=== PATIENT | male | born 1960 | race Caucasian/White ===

== ENCOUNTER 2017-07-08 12:56 | Emergency (ER) | payer MEDICARE ==
[~2017-07-08] VITALS: Ht 188 cm; Wt 104.3 kg
[~2017-07-08 12:56] MED LIST: ALPR1TAB2 PO; AMIT100T PO; ATEN50TA PO; CARI350T PO; RIVA20TA2 PO; SIMV80TA PO
[2017-07-08 13:05] VITALS: BP 128/77
[2017-07-08] MEDS ORDERED: HYDR-2758 PO (13:59)
[2017-07-08] MEDS ORDERED: HYDROmorphone 2 MG/ML VIAL IM ONE ×3 (14:00→16:30)
--- NOTE | 2017-07-08 14:00 | PHYS DOC ---
Past Medical History Past Medical History: CVA, DVT, High Cholesterol, Hypertension Past Surgical History: Pacemaker, Tonsillectomy Additional Information: 0.5 PPD Alcohol Use: Occasionally Drug Use: Marijuana Adult General Chief Complaint Chief Complaint: LOWER EXT PAIN HPI HPI 56-year-old male presenting to the emergency department today with left leg pain. The pain in his leg is sharp moderate intermittent and worse with walking. He is unable to identify whether his leg is more in his foot and ankle knee or more proximally. He is a very poor ability to communicate where his pain is. When after further questioning we were able to identify that his hip does not hurt. He does have a history of DVT. He doesn't remember having any recent trauma. Review of systems is negative for chest pain shortness of breath abdominal pain nausea vomiting fevers or chills. All other review of systems is negative unless otherwise noted in history of present illness. ED course: 56-year-old male presenting to the emergency department today with left leg pain. X-rays and ultrasound obtained. X-rays unremarkable. Ultrasound shows deep vein thrombosis. I discussed the case with our vascular surgeon Dr. Tirado who recommended outpatient oral anticoagulation is a reasonable therapy. Vital signs unremarkable. The patient was provided intramuscular opioid medications for pain control here. On reexamination he was feeling much better. He was able to ambulate without difficulty in the emergency department. We arranged for him to have a ride home. He was then discharged home in stable condition. Follow up with PCP. Patient will need outpatient workup for possible underlying coagulopathy. Patient's primary care physician Dr. Mathews has an appointment with the patient tomorrow. The patient was then discharged home in stable condition to follow up with their primary care physician over the next 2- 3 days. They were to return if their symptoms worsened or if they were concerned for any reason. [id number] discharge instructions and return precautions were given. Patient's questions were answered to their satisfaction. Patient is comfortable plan. Review of Systems Review of Systems SEE ABOVE. Current Medications Current Medications Current Medications Medications (Trade) Dose Ordered Sig/Raoul Start Time Stop Time Status Last Admin Dose Admin Hydromorphone HCl (Dilaudid) 0.5 mg 1X ONCE 07/08/17 15:00 07/08/17 15:01 DC 07/08/17 14:56 0.5 MG Allergies Allergies Allergies Coded Allergies Type Severity Reaction Last Updated Verified acetaminophen Allergy Intermediate 4/30/14 Yes codeine Allergy Intermediate 03/18/14 Yes oxycodone HCl Allergy Intermediate 03/18/14 Yes propoxyphene napsylate Allergy Intermediate 03/18/14 Yes Physical Exam Physical Exam SEE ABOVE Constitutional: Well developed, well nourished, no acute distress, non-toxic appearance. [] HENT: Normocephalic, atraumatic, bilateral external ears normal, oropharynx moist, no oral exudates, nose normal. [] Eyes: PERRLA, EOMI, conjunctiva normal, no discharge. [] Neck: Normal range of motion, no tenderness, supple, no stridor. Cardiovascular:Heart rate regular rhythm, no murmur Lungs & Thorax: Bilateral breath sounds clear to auscultation [] Abdomen: Bowel sounds normal, soft, no tenderness, no masses, no pulsatile masses. [] Skin: Warm, dry, no erythema, no rash. Back: No tenderness, no CVA tenderness. [] Extremities: The patient's left lower extremity is normal in appearance. 2 second cap refill with palpable pulses bilaterally. Mild tenderness in the ankle and knee with mild pain with passive range of motion. Stable ankle and knee exam. Patient does not have specific tenderness anywhere on the examination. He reports generalized tenderness. No edema present. No clinical evidence of DVT. No traumatic injury evident. No abrasions lacerations or ecchymosis. Neurologic: Alert and oriented X 3, normal motor function, normal sensory function, no focal deficits noted. [] Psychologic: Affect normal, judgement normal, mood normal. Current Patient Data Vital Signs Vital Signs Date Time Temp Pulse Resp B/P (MAP) Pulse Ox O2 Delivery O2 Flow Rate FiO2 07/08/17 14:56 Room Air 07/08/17 13:05 98.0 75 20 128/77 (94) 96 98.0 Lab Values Laboratory Tests Test 07/08/17 15:37 White Blood Count 8.2 x10^3/uL (4.0-11.0) Red Blood Count 4.83 x10^6/uL (4.30-5.70) Hemoglobin 15.7 g/dL (13.0-17.5) Hematocrit 45.8 % (39.0-53.0) Mean Corpuscular Volume 95 fL (79-100) Mean Corpuscular Hemoglobin 33 pg (25-35) Mean Corpuscular Hemoglobin Concent 34 g/dL (31-37) Red Cell Distribution Width 13.4 % (11.5-14.5) Platelet Count 174 x10^3/uL (140-400) Neutrophils (%) (Auto) 62 % (31-73) Lymphocytes (%) (Auto) 25 % (24-48) Monocytes (%) (Auto) 8 % (0-9) Eosinophils (%) (Auto) 4 % (0-3) H Basophils (%) (Auto) 1 % (0-3) Neutrophils # (Auto) 5.1 x10^3uL (1.8-7.7) Lymphocytes # (Auto) 2.1 x10^3/uL (1.0-4.8) Monocytes # (Auto) 0.6 x10^3/uL (0.0-1.1) Eosinophils # (Auto) 0.3 x10^3/uL (0.0-0.7) Basophils # (Auto) 0.1 x10^3/uL (0.0-0.2) Sodium Level 138 mmol/L (136-145) Potassium Level 4.0 mmol/L (3.5-5.1) Chloride Level 101 mmol/L (98-107) Carbon Dioxide Level 30 mmol/L (21-32) Anion Gap 7 (6-14) Blood Urea Nitrogen 15 mg/dL (8-26) Creatinine 1.0 mg/dL (0.7-1.3) Estimated GFR (Cockcroft-Gault) 77.9 Glucose Level 103 mg/dL (70-99) H Calcium Level 8.9 mg/dL (8.5-10.1) Laboratory Tests 07/08/17 15:37 Laboratory Tests 07/08/17 15:37 EKG EKG [] Radiology/Procedures Radiology/Procedures [] Course & Med Decision Making Course & Med Decision Making Pertinent Labs and Imaging studies reviewed. (See chart for details) [] Dragon Disclaimer Dragon Disclaimer This electronic medical record was generated, in whole or in part, using a voice recognition dictation system. Departure Departure Impression: Primary Impression: DVT (deep venous thrombosis) Disposition: 01 HOME, SELF-CARE Condition: STABLE Referrals: JUSTIN MYERS MD (PCP) Patient Instructions: Deep Vein Thrombosis Additional Instructions: Thank you for allowing us to participate in your care today. Followup with your primary care physician in 3 days if your symptoms do not improve. Call your Primary Doctor tomorrow and inform them of your visit today. If you do not have a primary care provider you can ask for a list of our primary care providers. Return to the emergency department you have any new or concerning findings. This should be evaluated by the primary care physician and any necessary consulting services for continued management within a few days after discharge. Return to emergency room if you have any new or concerning symptoms including but not limited to fever, chills, nausea, vomiting, intractable pain, any new rashes, chest pain, shortness of air, uncontrolled bleeding, difficulty breathing, and/or vision loss. You may have been prescribed medication that can change in your level of thinking and ability to operate machinery. These medications include hydrocodone and Ativan. Also, Benadryl has been known to do this as well. Be sure to check with your pharmacist and ask if the medications you've prescribed can affect your level of consciousness. I recommend not operating heavy machinery or driving while on medication such as these. Scripts Rivaroxaban (XARELTO) 15 Mg Tablet 15 MG PO BID, #20 TAB Prov: RAVEN RAIN MD 07/08/17 Hydrocodone Bit/Acetaminophen (HYDROCODONE-APAP 5-325 ) 1 Each Tablet 1 TAB PO PRN Q6HRS Y for PAIN, #15 TAB 0 Refills Be careful as this medication may cause you to be drowsy or tired. Do not drive on this medication. Prov: RAVEN RAIN MD 07/08/17 RAVEN RAIN MD Jul 08, 2017 14:00
--- NOTE | 2017-07-08 14:18 | RAD ---
Indication: Patient was walking 2 weeks ago, heard something pop. Persistent pain. Recently worsened and now unable to walk. Technique: 3 views of the left ankle are submitted for review. No comparison is available. Findings: There is soft tissue swelling medially. There is no acute fracture or dislocation. Irregularity of the medial malleolus may be degenerative or sequela of remote trauma. Plantar calcaneal spur and spur at the insertion of the Achilles tendon is noted. Impression: Soft tissue swelling. Negative for fracture. If there is concern for ligamentous injury, consider nonemergent MRI.
--- NOTE | 2017-07-08 14:20 | RAD ---
Indication: Walking 2 weeks ago, heard something pop. Worsening pain. No longer able to walk. Technique: 3 views of the left knee are submitted for review. No comparison is available. Findings: There is no fracture or dislocation. There is no joint space narrowing. Spur arising from the patella is noted. There is no joint effusion or soft tissue swelling. Impression: Negative for fracture.
--- NOTE | 2017-07-08 15:16 | RAD ---
Indication: Left leg pain with history of previous right DVT. Technique: Grayscale, color-flow, and spectral waveform analysis was performed of the left lower extremity. Findings: The exam is positive for occlusive thrombus within the left lower extremity from the superficial femoral vein through the calf veins. Both common femoral veins are patent. Both common femoral veins demonstrate normal color flow and phasicity of waveform. Impression: Exam is positive for extensive deep vein thrombosis throughout the left lower extremity.
[2017-07-08 15:43] LABS: BASO # 0.1 x10^3/uL (0.0-0.2); BASO % 1 % (0-3); EOS % 4 % (0-3); HEMATOCRIT 45.8 % (39.0-53.0); HEMOGLOBIN 15.7 g/dL (13.0-17.5); LYMPH # 2.1 x10^3/uL (1.0-4.8); LYMPH % 25 % (24-48); MEAN CORPUSCULAR HEMOGLOBIN 33 pg (25-35); MEAN CORPUSCULAR HGB CONC 34 g/dL (31-37); MEAN CORPUSCULAR VOLUME 95 fL (79-100); MONO % 8 % (0-9); NEUT % 62 % (31-73); PLATELET COUNT 174 x10^3/uL (140-400); RED BLOOD COUNT 4.83 x10^6/uL (4.30-5.70); RED CELL DISTRIBUTION WIDTH 13.4 % (11.5-14.5); WHITE BLOOD COUNT 8.2 x10^3/uL (4.0-11.0)
[2017-07-08 15:50] LABS: CALCIUM 8.9 mg/dL (8.5-10.1); GFR 77.9
[2017-07-08] MEDS ORDERED: RIVA15TA PO (15:58)
== END 2017-07-08 16:30 | disposition home or self-care (01) ==
LOC: ER 12:56
DX: I82.402 Acute embolism and thrombosis of unspecified deep veins of left lower extremity (principal); I10 Essential (primary) hypertension; E78.00 Pure hypercholesterolemia, unspecified; F17.200 Nicotine dependence, unspecified, uncomplicated; Z86.73 Personal history of transient ischemic attack (TIA), and cerebral infarction without residual deficits; Z95.0 Presence of cardiac pacemaker; Z88.5 Allergy status to narcotic agent; Z88.6 Allergy status to analgesic agent; Z88.8 Allergy status to other drugs, medicaments and biological substances
CPT/HCPCS: 36415; 73562; 73610; 80048; 85025; 93971; 96372; 99285; J1170

== ENCOUNTER 2018-01-23 10:48 | Emergency (ER) | payer MEDICARE ==
[2018-01-23] MEDS: MORPHINE SULFATE 4 MG/ML DISP.SYRIN. IM (12:19)
== END 2018-01-23 12:37 | disposition home or self-care (01) ==
LOC: ER 12:37
DX: M25.562 Pain in left knee (principal); E78.00 Pure hypercholesterolemia, unspecified; I10 Essential (primary) hypertension; Z86.73 Personal history of transient ischemic attack (TIA), and cerebral infarction without residual deficits; Z95.0 Presence of cardiac pacemaker; Z86.718 Personal history of other venous thrombosis and embolism; F12.10 Cannabis abuse, uncomplicated; Z88.5 Allergy status to narcotic agent; Z88.6 Allergy status to analgesic agent; Z88.8 Allergy status to other drugs, medicaments and biological substances
CPT/HCPCS: 96372; 99283-25; J2270

== ENCOUNTER → 2018-01-23 | Outpatient (CLI) | payer MEDICARE | END | disposition home or self-care (01) | LOC: CT 10:28 | DX: M17.12 Unilateral primary osteoarthritis, left knee (principal); M79.89 Other specified soft tissue disorders; Z86.718 Personal history of other venous thrombosis and embolism | CPT/HCPCS: 73700 ==